=== PATIENT | male | born 1950 | race Caucasian/White ===

== ENCOUNTER 2017-02-04 07:33 | Observation (INO) | payer BC ==
[2017-02-01 13:39] LABS: HEMATOCRIT 42.3 % (40.0-51.0)
[2017-02-01 13:57] LABS: ALBUMIN 3.6 G/DL (3.5-5.0); ALKALINE PHOSPHATASE 55 U/L (45-117); BUN (BLOOD UREA NITROGEN) 18 MG/DL (6-23); CALCIUM, SERUM 8.5 MG/DL (8.5-10.4); CHLORIDE, SERUM 101 MMOL/L (96-112); CO2 (CARBON DIOXIDE) 27 MMOL/L (24-34); DIRECT BILIRUBIN 0.2 MG/DL (0.0-0.4); GFR AFRICAN AMERICAN 90 ML/MIN (>=60); GFR NON AFRICAN AMERICAN 78 ML/MIN (>=60); GLUCOSE, SERUM 131 MG/DL (60-99); INDIRECT BILIRUBIN(NOT ORDER) 0.3 MG/DL (0.1-0.9); POTASSIUM, SERUM 4.2 MMOL/L (3.5-5.3); SGOT(AST) 12 U/L (5-40); SGPT(ALT) 26 U/L (5-65); SODIUM, SERUM 138 MMOL/L (135-148); TOTAL BILIRUBIN 0.5 MG/DL (0-1.2); TOTAL PROTEIN 6.9 G/DL (6.0-8.5)
--- NOTE | ~2017-02-04 | OP ---
Record Of Operation [facility] [address] [place]. [address] NAME: RAMYA AL : [birth year] STATUS : ADM Toby PAT#: [id number] AGE: 66 ADM/REG DATE : 02/04/17 MR#: [id number] REPORT SERV DATE: 02/05/17 DICTATED BY: CLAYTON CLARK DATE: 02/04/17 REPORT STATUS : Draft TRANSCRIBED BY: MODL DATE: 02/04/17 DATE OF PROCEDURE: 02/04/2017 PREOPERATIVE DIAGNOSIS: Zenker's diverticulum. POSTOPERATIVE DIAGNOSIS: Zenker's diverticulum. PROCEDURE: 1. Transoral repair of Zenker's diverticulum. 2. Rigid esophagoscopy. ANESTHESIA: General. COMPLICATIONS: None. COUNTS: All counts correct following the procedure. ESTIMATED BLOOD LOSS: Minimal. PREOPERATIVE INFORMED CONSENT: We discussed at length the risks and benefits of the surgery to include, but not limited to bleeding, infection, possible recurrent laryngeal nerve injury, possible esophageal perforation, possible postoperative fistula resulting in infection, possible mediastinal mass, possible , possible recurrence of the Zenker's requiring revision surgery. He understands the risks and benefits of surgery and consent is on the chart. PROCEDURE IN DETAIL: The patient was brought to the operative suite and placed on the operating room in supine position. General endotracheal anesthesia was initiated without incident. Bite guard was placed on the upper teeth and a 30 cm rigid esophagoscope was carefully inserted in the oral cavity to inspect the oral cavity, oropharynx. The hypopharynx was entered and there was noted to be a moderate-sized Zenker's diverticulum. The esophageal inlet was somewhat tight, was carefully dilated, and the scope was advanced down to 30 cm without difficulty. Dobbhoff tube was placed through the esophagoscope to better help identify the esophageal inlet. Then a bivalved Zenker's diverticuloscope was inserted in the oral cavity and in the right pyriform sinus and advanced into the postcricoid region. The upper blade was advanced into the esophagus. The lower blade was advanced into the Zenker's diverticulum. The scope was then opened exposing the alliance party wall between the Zenker's and the esophagus, also revealing the cricopharyngeus muscle. The patient was suspended from [facility]. Then, using a 0-degree, Lind ivy was used to visualize the site. Then an endoscopic EMILY stapler was placed across the alliance party wall and fired. This effectively eliminated the Zenker's diverticulum and created a common pouch emptying directly into the esophagus. The staple line was carefully inspected and excellent coverage of the mucosal defects. The Zenker's diverticuloscope was removed. The patient was awakened from anesthesia and taken to recovery room in stable condition. Record Of Operation [address] [place]. [address] NAME: RAMYA AL : [birth year] STATUS : ADM Toby PAT#: [id number] AGE: 66 ADM/REG DATE : 02/04/17 MR#: [id number] REPORT SERV DATE: 02/05/17 DICTATED BY: CLAYTON CLARK DATE: 02/04/17 REPORT STATUS : Draft TRANSCRIBED BY: DONALDO DATE: 02/04/17 CASSI/DONALDO Clayton Clark M.D. / [id number] CC: Ab De Guzman M.D. David Collins, M.D.
[~2017-02-04 07:33] MED LIST: AREDS 2; CO Q-10100 MG PO; FISH-EPA1000 MG PO; LIPITOR10 PO; PRILOSEC40 MG PO; PROZAC PO
[2017-02-05] MEDS ORDERED: NORCO1 TA1 PO (11:30)
[2017-02-05] MEDS ORDERED: ZOFRAN ODT4 MG PO (11:31)
[2017-03-27] MEDS ORDERED: METPAKSF PO (16:03)
[2017-03-27] MEDS ORDERED: ADVIL PO (16:04)
== END 2017-02-05 12:22 | disposition home or self-care (01) ==
LOC: SDC 07:33 → 4SO 12:53
PROVIDERS: Otolaryngology
PROC: 0CBM8ZZ Excision of Pharynx, Via Natural or Artificial Opening Endoscopic (ICD-10-PCS; principal; 2017-02-04 09:15)
DX: K22.5 Diverticulum of esophagus, acquired (principal); F32.9 Major depressive disorder, single episode, unspecified; E78.5 Hyperlipidemia, unspecified; K21.9 Gastro-esophageal reflux disease without esophagitis; Z86.19 Personal history of other infectious and parasitic diseases; Z98.890 Other specified postprocedural states; Z87.891 Personal history of nicotine dependence
CPT/HCPCS: 36415; 74220; 80048; 80076; 85014; 85018; 93005; 96374; A9270-GY; G0378; J0690; J2250; J2270; J2405; J2710; J3010

== ENCOUNTER 2017-04-09 08:50 | Day surgery (SDC) | payer BC ==
--- NOTE | ~2017-04-09 | EGD ---
EGD REPORT [facility] [address] [place] [address] NAME: DAVID WHATLEY : 48 STATUS : REG [facility]#: [id number] AGE: 67 ADM/REG DATE : 04/09/17 MR#: [id number] REPORT SERV DATE: 04/09/17 DICTATED BY: NINI SCHAEFER DATE: 04/09/17 REPORT STATUS : Draft TRANSCRIBED BY: [facility] DATE: 04/09/17 Endoscopy Center Patient Name: David Whatley Date of : 1950 Attending MD: NINI SCHAEFER MD Procedure Date No Time: 04/09/2017 Procedure: Upper GI endoscopy Indications: Follow-up of acute gastric ulcer Referring MD: MILLICENT MUNOZ MD Medicines: as per anesthesia Complications: No immediate complications. Procedure: Pre-Anesthesia Assessment: - ASA Grade Assessment: II - A patient with mild systemic disease. After obtaining informed consent, the endoscope was passed under direct vision. Throughout the procedure, the patient's blood pressure, pulse, and oxygen saturations were monitored continuously. The GIF [id number] was introduced through the mouth, and advanced to the third part of duodenum. The upper GI endoscopy was accomplished without difficulty. The patient tolerated the procedure. Findings: The examined esophagus was normal. The entire examined stomach was normal. The cardia and gastric fundus were normal on retroflexion. The examined duodenum was normal. Impression: - Normal esophagus. - Normal stomach. - Normal examined duodenum. Recommendation: - Continue present medications. Procedure Code(s): --- Professional --- 63813, Esophagogastroduodenoscopy, flexible, transoral; diagnostic, including collection of specimen(s) by brushing or washing, when performed (separate procedure) Diagnosis Code(s): --- Professional --- K25.3, Acute gastric ulcer without hemorrhage or perforation EGD REPORT [facility] [address] [place] [address] [place]. [address] NAME: DAVID WHATLEY : [birth year] STATUS : REG [facility] PAT#: [id number] AGE: 67 ADM/REG DATE : 04/09/17 MR#: [id number] REPORT SERV DATE: 04/09/17 DICTATED BY: NINI SCHAEFER. DATE: 04/09/17 REPORT STATUS : Draft TRANSCRIBED BY: [facility] DATE: 04/09/17 CPT copyright 2013 [employer]. All rights reserved. The codes documented in this report are preliminary and upon cpc coder review may be revised to meet current compliance requirements. NINI SCHAEFER MD 04/09/2017 10:43 AM This report has been signed electronically. Number of Addenda: 0 Note Initiated On: 04/09/2017 10:27 AM Scope Withdrawal Time 0 hours 0 minutes 0 seconds [address] [facility] [place] [address]
[~2017-04-09 08:50] MED LIST changes: +ADVIL PO; +METPAKSF PO; +NORCO1 TA1 PO; +ZOFRAN ODT4 MG PO
== END 2017-04-09 23:59 | disposition home health service (06) ==
LOC: DMU 08:50
PROVIDERS: Internal Medicine Gastroenterology
PROC: 0DJ08ZZ Inspection of Upper Intestinal Tract, Via Natural or Artificial Opening Endoscopic (ICD-10-PCS; principal; 2017-04-09 10:00)
DX: K25.3 Acute gastric ulcer without hemorrhage or perforation (principal); E78.00 Pure hypercholesterolemia, unspecified; I10 Essential (primary) hypertension; E78.5 Hyperlipidemia, unspecified; K21.9 Gastro-esophageal reflux disease without esophagitis; F32.9 Major depressive disorder, single episode, unspecified; Z87.891 Personal history of nicotine dependence; Z98.890 Other specified postprocedural states